=== PATIENT | male | born 1940 | race Caucasian/White ===

== ENCOUNTER → 2017-09-17 | Day surgery (SDC) | payer OTHER ==
[~2017-09-17] MED LIST: DEXAMETHASONE SOD PHOS 4 MG/ML VIAL ONE; EPINEPHrine HCL (1:1000) 1 MG/ML VIAL ONE; LACTATED RINGER'S 1000 ML INJ 1,000 ML ONE; MIDAZOLAM HCL 2 MG/2 ML VIAL ONE; MOXIFLOXACIN 0.5% OPHT SOLN 3 ML BTL ONE; ONDANSETRON HCL 4 MG/2 ML VIAL IV PUSH ONE; PHENYLEPHRINE HCL 10% OPTH SOLN 5 ML BTL ONE; PROPOFOL 200 MG/20 ML AMP IV ONE; SODIUM CHLORIDE 0.9% INJ 10 ML ONE; TETRACAINE 0.5% OPTH SOLN 4 ML BTL ONE; TOBRAMYCIN/DEXAMETHASONE OPTH OINT 3.5 GM TUBE ONE; TRIAMCINOLONE ACETONIDE 40 MG/ML VIAL ONE; ceFAZolin INJ 1,000 MG VIAL ONE; prednisoLONE ACETATE 1% OPHT SUSP 5 ML BTL ONE
--- NOTE | 2017-09-19 12:45 | MP ---
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 PROCEDURE PERFORMED: Pars vitrectomy, retinal detachment repair, endolaser, air fluid exchange, removal of PVR and insertion of 15% C3F8 gas, left eye. COMPLICATIONS: None. ESTIMATED BLOOD LOSS: Less than 1 mL. ANESTHESIA: Dr. Tran, general. INDICATIONS FOR PROCEDURE: This delightful patient presented with large, near total retinal detachment through his macula for at least 1-1/2 weeks. The patient had proliferative vitreal retinopathy within the periphery and likely a peripheral detachment for some time. The patient elected for surgical correction, understanding risks, benefits, alternatives. PROCEDURE NOTE: After informed consent was obtained, the patient was brought to the operating room, general anesthesia, was established. Left eye was prepped and draped in sterile fashion. Betadine in the conjunctival fornix. A 3 port pars plana vitrectomy was established with infusion cannula. Core vitrectomy was carried out and peripheral vitreous traction was relieved. The vitreous base was trimmed with vitrectomy under scleral depression. A pick was used to remove inferior . PFO was instilled and the retina reattached as subretinal fluid was removed via existing retinal tears. The retina reattached quite nicely. Air fluid exchange was carried out and after laser was applied nearly 360 degrees surrounding each retinal tear. The retina remained nicely attached. 15% C3F8 gas was instilled. Trocars removed and sclerotomies closed with 7-0 Vicryl suture. Conjunctivae were reapproximated with 6-0 plain gut. Subconjunctival injection of Ancef and betamethasone were given. The eye was patched with tobramycin ointment. The patient was brought to recovery room in stable condition and continue followup with [facility] for his postoperative care. MD ALEX Rajan/EVERT[place] , 08:43 PM , 09:06 PM
== END | disposition home or self-care (01) ==
LOC: ESDC 06:11
PROVIDERS: ATTEND Ophthalmology
DX: H33.42 Traction detachment of retina, left eye (principal)
CPT/HCPCS: 00145; 67113; J0171; J0690; J1100; J2250; J2405; J3010; J7120; J3301